=== PATIENT | female | born 1945 | race African-American/Black ===

== ENCOUNTER 2018-12-18 21:05 | Inpatient (IN) | payer MEDICARE, OTHER ==
[~2018-12-18] VITALS: Ht 170.2 cm; Wt 73.9 kg
--- NOTE | 2018-12-18 21:50 | NUR ---
Receive a phone report from Taya Soni RN from [facility] for pt's transferring s/p fall from horse-ride and diagnosis of right hip fracture. Will continue to follow up for pt's admission.
[2018-12-19] VITALS (8 sets, daily range): BP systolic 128–163; BP diastolic 67–84
--- NOTE | 2018-12-19 00:10 | NUR ---
NURSE NOTES: Patient admitted from [facility] via gurney with [address] [facility]. Pt is awake and alert, orientation X 4. Breathing is even and non labored. No acute distress noted. Denies pain on right hip during rest. No discoloration or bruise noted. No skin issues noted. Came with H/L on left FA patent without infiltration. Done checking belongings. Provide unit orientations. Bed is locked and lowest. Call light within reach. Pt is wearing regular clothing and refuses to change at this time. Make herself comfortable. Will continue to monitor. @0050 Done ordered labs and receive orders from Dr. Hernandez and carried out.
[2018-12-19 01:13] LABS: BASOPHILS % (AUTO) 0.6 % (0.0-2.0); EOSINOPHILS % (AUTO) 0.4 % (0.0-3.0); HEMATOCRIT 36.2 % (37.0-47.0); HEMOGLOBIN 12.5 G/DL (12.0-16.0); LYMPHOCYTES % (AUTO) 37.6 % (20.0-45.0); MEAN CORPUSCULAR VOLUME 95 FL (80-99); MONOCYTES % (AUTO) 9.4 % (1.0-10.0); PLATELET COUNT 114 K/UL (150-450); RED CELL DISTRIBUTION WIDTH 11.9 % (11.6-14.8); WHITE BLOOD COUNT 7.9 K/UL (4.8-10.8)
[2018-12-19 01:32] LABS: ALANINE AMINOTRANSFERASE 18 U/L (12-78); ALBUMIN 3.6 G/DL (3.4-5.0); ALBUMIN/GLOBULIN RATIO 0.9 (1.0-2.7); ALKALINE PHOSPHATASE 53 U/L (46-116); ANION GAP 9 mmol/L (5-15); ASPARTATE AMINO TRANSFERASE 22 U/L (15-37); BILIRUBIN,TOTAL 1.3 MG/DL (0.2-1.0); BLOOD UREA NITROGEN 15 mg/dL (7-18); CALCIUM 8.6 MG/DL (8.5-10.1); CARBON DIOXIDE 26 MMOL/L (21-32); CHLORIDE 107 MMOL/L (98-107); POTASSIUM 3.5 MMOL/L (3.5-5.1); SODIUM 142 MMOL/L (136-145)
[2018-12-19 01:39] LABS: BILIRUBIN,DIRECT 0.3 MG/DL (0.0-0.3)
[2018-12-19] MEDS: Morphine Sulfate 2mg/ml Inj(IV/IM USE ONLY) IVP PRN ×2 (03:21→19:55)
--- NOTE | 2018-12-19 07:30 | NUR ---
HAND-OFF: Report given to MARTY Perez. Round is done. Pt is in bed without acute distress. Seen by Dr. Hernandez. Confirm to use of Heparin as ordered including SCDs on. Dr. carreno verofy her home medication. Will continue to follow up. Am shift nurse made aware.
--- NOTE | 2018-12-19 08:06 | NUR ---
NURSE NOTES Patient is alert and oriented,right leg pedal pulse strong patient able to wiggle toes,no numbness.DR Hernandez was here this morning to asses patient .Call light within reach. ,
--- NOTE | 2018-12-19 08:30 | History and Physical Report ---
DATE OF ADMISSION: 12/19/2018 CHIEF COMPLAINT: Right inferior and superior pubic ramus fracture. HISTORY OF PRESENT ILLNESS: The patient is a pleasant female. She has a history of hypertensive heart disease and sustained a fall while riding a horse. She apparently jumped off of a horse because she was scared. She landed on her right side and had severe pain. She was taken to [facility] where she was diagnosed with a superior and inferior pubic ramus fracture. She requested to transfer here with her regular doctors. She did not hit her head and there was no other trauma. There is no loss of consciousness. PAST MEDICAL HISTORY: As above. PAST SURGICAL HISTORY: None. CURRENT MEDICATIONS: Reconciled and reviewed. ALLERGIES: None. FAMILY HISTORY: None. SOCIAL HISTORY: The patient is a smoker. No alcohol. No drugs. REVIEW OF SYSTEMS: GENERAL: No fevers or chills. HEENT: No headaches or visual changes. CARDIOPULMONARY: No chest pain or shortness of breath. GASTROINTESTINAL: No nausea or vomiting. GENITOURINARY: No urgency or frequency. MUSCULOSKELETAL: No joint pain or swelling. NEUROLOGIC: No evidence of seizures. PHYSICAL EXAMINATION: VITAL SIGNS: Temperature 98, blood pressure 140/76, pulse 70, respirations 20. GENERAL: The patient well-developed, no apparent distress. HEART: Regular rate and rhythm. LUNGS: Clear. ABDOMEN: Soft, nontender, nondistended. EXTREMITIES: Without clubbing, cyanosis, or edema. LABORATORY DATA: Labs are reviewed. Potassium was 3.5. ASSESSMENT: This is a pleasant female with a history of hypertensive heart disease, status post fall from a horse where she apparently sustained a right inferior and superior pubic ramus fracture. PLAN: Orthopedics consultation. We will resume the patient's outpatient blood pressure regimen. The patient received DVT and stress ulcer prophylaxis. Johny Hernandez M.D. DR: ARACELIS JOB#: [id number] CC:
[2018-12-19] MEDS: Heparin 5000 units/ml inj SUBQ SCH ×2 (09:23→20:11)
--- NOTE | 2018-12-19 10:15 | Diagnostic Imaging Report ---
EXAM: XR Chest, 1 View CLINICAL HISTORY: COPD TECHNIQUE: Frontal view of the chest. COMPARISON: No relevant prior studies available. FINDINGS: Lungs: Accentuation of bronchovascular markings. No consolidation. Pleural space: Unremarkable. No pneumothorax. Heart: Cardiomegaly Mediastinum: Unremarkable. Bones joints: No acute fracture. IMPRESSION: Cardiomegaly and accentuation of bronchovascular markings.
--- NOTE | 2018-12-19 14:15 | NUR ---
NURSE NOTES: received patient A/A/O lying in bed, calm and comfortable. NO c/o pain/discomfort @ this time. call light is within reach. able to use BSC with assistance. siderails are up x3. bed alarm is activated and locked @ all times. will cont to monitor.
--- NOTE | 2018-12-19 14:33 | NUR ---
HAND-OFF: Report given to WILLIAM CRAFT.
--- NOTE | 2018-12-19 14:33 | NUR ---
NURSE NOTES: Patient resting no complaint of pain at this time.call light within reach.
--- NOTE | 2018-12-19 19:01 | NUR ---
HAND-OFF: Report given to
--- NOTE | 2018-12-19 19:30 | NUR ---
NURSE NOTES: Received report from LUANA Bolden and rounds made with outgoing nurse. Received pt in bed, AOx4, denies any pain at this time, no distress noted. IV L forearm patent and intact. Abduction pillow in-place. Instructed pt not to cross right leg due to right hip fx. Pt verbalized understanding. Bed in lowest position and locked, side rails up x 2, call light within reach. Will continue to monitor.
--- NOTE | 2018-12-19 19:55 | NUR ---
NURSE NOTES: Assisted pt to use bedpan, voided without difficulty, medicated for pain. Will continue to monitor.
[2018-12-20] VITALS (7 sets, daily range): BP systolic 146–169; BP diastolic 84–105
[2018-12-20] MEDS: Morphine Sulfate 2mg/ml Inj(IV/IM USE ONLY) IVP PRN ×2 (05:20→19:56)
--- NOTE | 2018-12-20 07:31 | NUR ---
HAND-OFF: Report given to MARTY Vizcaino. Pt in stable condition.
--- NOTE | 2018-12-20 07:45 | NUR ---
NURSE NOTES: received report from MARTY Chopra. patient in bed. alert. oriented. verbally responsive. no respiratory distress noted. no pain at this time. waiting ortho consult with DR. price for RT hip FX. IV on LFA 20g hep lock intact. bed in the lowest position and locked. call light within reach. will continue to provide plan of care.
[2018-12-20] MEDS: Heparin 5000 units/ml inj SUBQ SCH ×2 (08:35→20:04)
--- NOTE | 2018-12-20 09:03 | NUR ---
NURSE NOTES: patient BP 164/105. patient has history of HTN. patient does not remember what medications she takes at home. notified DR. Hernandez and received order of Norvasc 5mg po daily. order noted and carried out.
[2018-12-20] MEDS ORDERED: HydrALAZINE 25mg tab ORAL PRN (11:00)
[2018-12-20] MEDS ORDERED: Losartan 50mg tab ORAL SCH (11:00)
--- NOTE | 2018-12-20 16:20 | NUR ---
NURSE NOTES: Patient wanted RN to ask doctor if she can continue to take multi vitamin and Vit D 5000 IU which patient takes every day at home for supplement. notified Mary Jung and received order of Multivitamin tab PO daily, Vit D 5000 IU daily. order noted and carried out.
--- NOTE | 2018-12-20 17:30 | Progress Note ---
DATE: 12/20/2018 CARDIOLOGY PROGRESS NOTE SUBJECTIVE: The patient's pain is better controlled. No shortness of breath noted. OBJECTIVE: VITAL SIGNS: Reviewed. Blood pressure trend is up at times. Blood pressure 164/105 earlier, now 146/88; pulse 62; respirations 20; afebrile. LUNGS: Clear. CARDIAC: Regular. ABDOMEN: Soft. No edema. Distal pulses intact. IMPRESSION: 1. Mechanical fall. 2. Superior and inferior pubic ramus fractures. 3. Hypertension with labile blood pressure trend, likely due to pain. 4. Osteoporosis and vitamin D deficiency. 5. History of hepatitis C eradication. 6. History of sinus bradycardia, asymptomatic. PLAN: 1. Await orthopedic evaluation. 2. Advance antihypertensives. 3. Avoid beta-blockers. 4. Recheck lab studies and preop EKG. Oni Bear M.D. DR: JAMES JOB#: [id number] CC:
--- NOTE | 2018-12-20 17:45 | Consultation ---
DATE OF CONSULTATION: 12/19/2018 CARDIOLOGY CONSULTATION CONSULTING PHYSICIAN: Oni Bear M.D. REASON FOR CONSULTATION: Preoperative cardiovascular evaluation for possible orthopedic surgery. HISTORY OF PRESENT ILLNESS: This is a 73-year-old female. She lives at home independently. She was horseback riding yesterday and jumped off the horse due to fear. She apparently landed hard on her right side and noted severe pain. From the stable, she was taken to [facility] where she was diagnosed with a superior and inferior pubic ramus fracture. Dr. Hernandez and myself were contacted by the patient and she was transferred here for further care as there apparently was no orthopedic surgery capacity at that facility either. The patient did not have any loss of consciousness. The patient does have a known history of hypertension and sinus node disease with bradycardia. The latter was exacerbated following treatment for hepatitis C with Harvoni. The patient has never had any syncope or symptomatic bradycardia. She had an exercise echocardiogram at my office within the last month that was negative for exercise-induced ischemia and revealed adequate chronotropic competence. Her baseline echocardiogram revealed normal ejection fraction with mild concentric hypertrophy and no wall motion abnormalities. PAST MEDICAL HISTORY: Hypertension; osteoarthritis; osteoporosis; history of hepatitis C, status post Harvoni eradication; vitamin D deficiency. ALLERGIES: None known. FAMILY HISTORY: Noncontributory. SOCIAL HISTORY: Active smoker and prior history of exposure to secondhand smoke as well, at least a 50 pack-year smoking history. No alcohol abuse. No substance abuse. She is a for the past three or four years. REVIEW OF SYSTEMS: No history of exertional chest pain. She had a negative myocardial perfusion scan several years ago. There is no history of rheumatic heart disease or endocarditis. There is no history of thyroid disorder or diabetes. No history of seizure or stroke. As noted above, she is status post hepatitis C eradication. There is no history of chronic liver disease. She has vitamin D deficiency and osteoporosis. PHYSICAL EXAMINATION: GENERAL: Appears well for her age. No distress. VITAL SIGNS: Blood pressure 147/84, pulse 63, respirations 17, temperature 99.1. HEENT: Normocephalic, atraumatic. Conjunctivae pink. Oropharynx clear. NECK: Supple. Jugular venous pressure normal. Carotid upstrokes without delay. LUNGS: Clear. CARDIAC: Regular rhythm and rate. Normal S1, S2 with no murmur, rub, or gallop. ABDOMEN: Soft, nontender. EXTREMITIES: Good pulses. No edema. NEUROLOGIC: Distal pulses are 2+. LABORATORY DATA: ER labs from [facility] were reviewed. IMPRESSION: 1. Mechanical fall. 2. Few inferior and superior pubic ramus fractures. 3. History of hypertension. 4. History of asymptomatic sinus bradycardia. PLAN: 1. Hydration. 2. Replace electrolytes. 3. DVT prophylaxis. 4. Stepwise titration of antihypertensive regimen. 5. We will consider low-dose beta-melissa preoperatively, however, would not to use this class of drugs long-term in view of history of bradycardia. FINAL RECOMMENDATIONS: We will follow on surgical plan if needed by Orthopedics is outlined. Oni Bear M.D. DR: JAMES JOB#: [id number] CC:
--- NOTE | 2018-12-20 19:17 | NUR ---
HAND-OFF: Report given to MARTY Chopra.
--- NOTE | 2018-12-20 19:30 | NUR ---
NURSE NOTES: Received report from MARTY Kaur. Receive pt in bed, AOx4, pain level 7/10, will medicate for pain, no distress noted. Bed in lowest position and locked, side rails up x 2, call light within reach. Will continue to monitor.
[2018-12-21] VITALS: BP 135/80
[2018-12-21 05:45] VITALS: BP 139/71
[2018-12-21 07:02] LABS: BASOPHILS % (AUTO) 0.5 % (0.0-2.0); EOSINOPHILS % (AUTO) 2.3 % (0.0-3.0); HEMATOCRIT 34.5 % (37.0-47.0); HEMOGLOBIN 11.6 G/DL (12.0-16.0); LYMPHOCYTES % (AUTO) 38.1 % (20.0-45.0); MEAN CORPUSCULAR VOLUME 96 FL (80-99); MONOCYTES % (AUTO) 17.4 % (1.0-10.0); NEUTROPHILS % (AUTO) 41.7 % (45.0-75.0); PLATELET COUNT 106 K/UL (150-450); RED BLOOD COUNT 3.61 M/UL (4.20-5.40); RED CELL DISTRIBUTION WIDTH 11.6 % (11.6-14.8); WHITE BLOOD COUNT 6.9 K/UL (4.8-10.8)
--- NOTE | 2018-12-21 07:27 | NUR ---
HAND-OFF: Report given to MARTY Hickman. Pt in stable condition.
--- NOTE | 2018-12-21 07:30 | NUR ---
NURSE NOTES: Pt lying in bed w/bed in lowest position and call light within reach. Pt A&Ox4, VSS, and in no apparent distress at this time. IV site intact/asymptomatic & H/L'd and skin intact. Reminded pt to call for assistance when she has to void; pt verbalized understanding. Will continue to monitor.
[2018-12-21 07:45] LABS: ALANINE AMINOTRANSFERASE 18 U/L (12-78); ALBUMIN 3.4 G/DL (3.4-5.0); ALBUMIN/GLOBULIN RATIO 0.9 (1.0-2.7); ALKALINE PHOSPHATASE 46 U/L (46-116); ANION GAP 10 mmol/L (5-15); ASPARTATE AMINO TRANSFERASE 25 U/L (15-37); BILIRUBIN,TOTAL 1.1 MG/DL (0.2-1.0); BLOOD UREA NITROGEN 9 mg/dL (7-18); CARBON DIOXIDE 25 MMOL/L (21-32); CHLORIDE 107 MMOL/L (98-107); CREATININE 0.8 MG/DL (0.55-1.30); POTASSIUM 3.3 MMOL/L (3.5-5.1); SODIUM 142 MMOL/L (136-145)
[2018-12-21 07:47] LABS: BILIRUBIN,DIRECT 0.2 MG/DL (0.0-0.3)
[2018-12-21 07:50] LABS: CALCIUM 8.7 MG/DL (8.5-10.1)
[2018-12-21 08:00] VITALS: BP 149/83
[2018-12-21] MEDS: Vitamin D 1000 IU Tab ORAL SCH (08:44)
[2018-12-21] MEDS: Heparin 5000 units/ml inj SUBQ SCH ×2 (08:46→20:03)
[2018-12-21] MEDS: Losartan 50mg tab ORAL SCH (08:48)
--- NOTE | 2018-12-21 09:13 | General Progress Note ---
Assessment/Plan Problem List: (1) Fracture of right hip ICD Codes: S72.001A - Fracture of unspecified part of neck of right femur, initial encounter for closed fracture SNOMED: 760608121 (2) Fever ICD Codes: R50.9 - Fever, unspecified SNOMED: 473980858 Status: stable, progressing Assessment/Plan: check UA D/w - he will see pt today. will order mri right hip Subjective ROS Limited/Unobtainable: No Constitutional: Reports: no symptoms HEENT: Reports: no symptoms Cardiovascular: Reports: no symptoms Respiratory: Reports: no symptoms Gastrointestinal/Abdominal: Reports: no symptoms Genitourinary: Reports: no symptoms Neurologic/Psychiatric: Reports: no symptoms Endocrine: Reports: no symptoms Hematologic/Lymphatic: Reports: no symptoms Allergies: Coded Allergies: NO KNOWN DRUG ALLERGIES (Verified Allergy, Unknown, 12/18/18) All Systems: reviewed and negative except above Subjective no events. still waiting for ortho. pain controlled. low grade temp. Objective Last 24 Hour Vital Signs Date Time Temp Pulse Resp B/P (MAP) Pulse Ox O2 Delivery O2 Flow Rate FiO2 12/21/18 08:48 149/83 12/21/18 08:48 69 149/83 12/21/18 05:45 99.5 69 17 139/71 (93) 96 12/21/18 00:00 99.2 65 18 135/80 (98) 99 12/20/18 21:00 Room Air 12/20/18 20:00 100.0 70 18 156/90 (112) 98 12/20/18 15:00 98.7 62 20 146/88 (107) 98 12/20/18 12:00 98.7 62 20 169/86 (113) 98 12/20/18 11:09 164/105 12/20/18 09:18 61 164/105 Intake and Output 12/20/18 12/21/18 19:00 07:00 Intake Total 300 ml 100 ml Output Total 600 ml Balance 300 ml -500 ml Intake Oral 300 ml 100 ml Output Urine Total 600 ml # Voids 3 # Bowel Movements 1 Laboratory Tests 12/21/18 04:45: White Blood Count 6.9, Red Blood Count 3.61L, Hemoglobin 11.6L, Hematocrit 34.5L , Mean Corpuscular Volume 96, Mean Corpuscular Hemoglobin 32.0H, Mean Corpuscular Hemoglobin Concent 33.5, Red Cell Distribution Width 11.6, Platelet Count 106L, Mean Platelet Volume 7.2, Neutrophils (%) (Auto) 41.7L, Lymphocytes (%) (Auto) 38.1, Monocytes (%) (Auto) 17.4H, Eosinophils (%) (Auto) 2.3, Basophils (%) (Auto) 0.5, Sodium Level 142, Potassium Level 3.3L, Chloride Level 107, Carbon Dioxide Level 25, Anion Gap 10, Blood Urea Nitrogen 9, Creatinine 0.8, Estimat Glomerular Filtration Rate , Glucose Level 115H, Calcium Level 8.7, Magnesium Level 1.7L, Total Bilirubin 1.1H, Direct Bilirubin 0.2, Aspartate Amino Transf (AST/SGOT) 25, Alanine Aminotransferase (ALT/SGPT) 18, Alkaline Phosphatase 46, Total Protein 7.4, Albumin 3.4, Globulin 4.0, Albumin/Globulin Ratio 0.9L, Thyroid Stimulating Hormone (TSH) 1.291 Height (Feet): 5 Height (Inches): 7.00 Weight (Pounds): 164 General Appearance: WD/WN Neck: supple Cardiovascular: regular rhythm Respiratory/Chest: chest wall non-tender, lungs clear, normal breath sounds, no respiratory distress Abdomen: normal bowel sounds, non tender, soft, no organomegaly Edema: no edema noted Arm (L), no edema noted Arm (R), no edema noted Leg (L), no edema noted Leg (R), no edema noted Pedal (L), no edema noted Pedal (R), no edema noted Generalized Johny Hernandez MD Dec 21, 2018 09:13
[2018-12-21 12:00] VITALS: BP 152/84
[2018-12-21 12:22] LABS: APPEARANCE,URINE CLEAR; BILIRUBIN, URINE NEGATIVE (NEGATIVE); GLUCOSE, URINE (UA) NEGATIVE (NEGATIVE); KETONES,URINE NEGATIVE (NEGATIVE); LEUKOCYTE ESTERASE ,URINE 2+ (NEGATIVE); NITRITE,URINE NEGATIVE (NEGATIVE); PH,URINE 7 (4.5-8.0); PROTEIN,URINE NEGATIVE (NEGATIVE); UROBILINOGEN,URINE 1 MG/DL (0.0-1.0)
[2018-12-21 12:25] LABS: COLOR,URINE YELLOW
[2018-12-21 16:00] VITALS: BP 155/100
--- NOTE | 2018-12-21 16:26 | NUR ---
CASE MANAGEMENT:REVIEW 73 YR OLD MALE BIBA FROM [facility] ER CC; JUMPED OFF HORSE SI: RT HIP FRACTURE. FEVER 99.2 58 17 128/72 99% ON RA PLT-114 IS: K-DUR PO X1 IV MAG SULFATE Q1HRS X2 BAGS COZAAR PO QD NORVASC PO QD HEPARIN SQ Q12 IV MORPHINE Q4HRS PRN : TO MED/SURG 3 EAST PLAN: ORTHOPEDIC CONSULT PENDING ~ DR ESTRADA MRI RT HIP
--- NOTE | 2018-12-21 17:02 | Diagnostic Imaging Report ---
Indication: Right Hip and pelvis pain Technique: MRI examination of the pelvis and right hip was performed in a 1.5 Ema magnet. Sequences obtained include multiplanar T1 and T2 fast spin echo, and STIR. Comparison: none Findings: There is a nondisplaced fracture involving the right hemisacrum best seen on coronal sequences as a curvilinear focus of T1 hypointensity/T2 hyperintensity. There is some associated soft tissue swelling. There is a fracture nondisplaced involving the right superior and inferior pubic rami. There is a moderate degree of the adjacent T2 hyperintense soft tissue edema mainly within the right adductor muscle group. The right femoral neck and remainder of the proximal femur demonstrate normal signal. There is no joint effusion. Bladder is mildly distended. There is some degradation of image quality due to motion. IMPRESSION: Acute nondisplaced fractures involving the right hemisacrum and right pubis. No evidence of a fracture involving the right hip. Findings discussed with Dr. Tank Martinez via telephone at 4:55 PM, 12/21/2018
[2018-12-21] MEDS: Morphine Sulfate 2mg/ml Inj(IV/IM USE ONLY) IVP PRN (17:40)
--- NOTE | 2018-12-21 19:48 | NUR ---
HAND-OFF: Report given to Nav Schneider RN.
--- NOTE | 2018-12-21 19:50 | Cardiology Report ---
APPROVED REPORT EKG Measurement Heart [id number] Normal sinus rhythm Normal ECG
[2018-12-21 20:00] VITALS: BP 147/86
--- NOTE | 2018-12-21 20:00 | NUR ---
NURSE NOTES: Patient in bed awake and oriented. VSS. No SOB noted. No Pain. Call light within reach. Bed is locked and in low position. In stable condition.
--- NOTE | 2018-12-21 22:00 | Progress Note ---
DATE: 12/21/2018 SUBJECTIVE: No issues overnight. She is still having some pain in the right hip, but overall does not have significant discomfort and pain. She does have some pain on the anterior aspect of the right hip. OBJECTIVE: GENERAL: The patient is resting comfortably on the exam bed. VITAL SIGNS: Afebrile. Stable vital signs. The rest of the examination is negative overall and negative heel strength. At this time, the patient has pain along SI joint area. IMAGING: CT scan of the pelvis was reviewed. It show minimally displaced superior and inferior pubic repair with sacral impaction fracture. ASSESSMENT: Pelvic ring fracture (lateral compression grade 1 pelvic ring fracture). DISCUSSION: At this point, due to stable injury, it is nonoperative and should heal in 6 to 12 weeks. She can be weightbearing as tolerated. Begin physical therapy with weightbearing as tolerated with the use of a walker. She can follow up as outpatient as needed. Solomon Martinez M.D. DR: ALEXANDRIA JOB#: [id number] CC: JENNIFER
--- NOTE | 2018-12-21 22:30 | Progress Note ---
DATE: 12/21/2018 CARDIOLOGY PROGRESS NOTE SUBJECTIVE: The patient had additional orthopedic imaging performed. Ortho evaluation had just nonsurgical management. OBJECTIVE: VITAL SIGNS: Blood pressure 149/83, pulse 69, respirations 17, temperature max 100. LUNGS: Diminished breath sounds. HEART: Regular rhythm and rate. Normal S1, S2. ABDOMEN: Soft. EXTREMITIES: No edema. LABORATORY DATA: White count 6.9, hemoglobin 11.6, potassium 3.3, magnesium 1.7. Urinalysis with 2 to 4 white cells only. IMPRESSION: 1. Pelvic fracture. 2. Hypokalemia. 3. Hypomagnesemia. 4. History of hepatitis C, status post eradication therapy. 5. Sinus node disease with history of asymptomatic bradycardia. PLAN: 1. Physical and occupational therapy. 2. Orthostatic precautions. 3. Oral potassium replacement. 4. IV magnesium replacement. 5. Titrate antihypertensives. Oni Bear M.D. DR: JAMES JOB#: [id number] CC:
[2018-12-22] VITALS: BP 151/90
--- NOTE | 2018-12-22 03:45 | Progress Note ---
DATE: 12/21/2018 SUBJECTIVE: The patient is a pleasant 73-year-old female was riding a horse when the horse kind of got out of control. She subsequently scared that she was going to be thrown off and was subsequently jumped off the horse, subsequently landing on her right side. She had significant pain and discomfort, was seen in the [facility], diagnosed with possible fracture, subsequently referred here for further care and recommendation. Orthopedic consultation was obtained for further care and recommendation. The patient does have some pain along the lateral aspect of the right hip as well as along the thigh area. She does have some pain along the pubic rami and posterior SI joint area. Sensation intact to light touch. Reflexes +2. Imaging studies show a possible fracture of the right superior pubic rami fracture. DISCUSSION: At this point, I think it is just primarily a pelvic ring fracture. I would like to get a CT scan of the pelvis to confirm this. CT scan does confirm pubic rami fracture with sacral impaction. She should be weightbearing as tolerated. It will take 6 to 12 weeks to heal. She can take Tylenol and NSAIDs as needed for breakthrough pain. We will order CT scan and make further recommendations tomorrow once I review the CT scan. Solomon Martinez M.D. DR: Pan JOB#: [id number] CC:
[2018-12-22 04:00] VITALS: BP 148/88
--- NOTE | 2018-12-22 05:05 | General Progress Note ---
Assessment/Plan Problem List: (1) Fracture of right hip ICD Codes: S72.001A - Fracture of unspecified part of neck of right femur, initial encounter for closed fracture SNOMED: 027264736 (2) Fever ICD Codes: R50.9 - Fever, unspecified SNOMED: 898720843 Status: stable, progressing Assessment/Plan: pain control pt/ot eval dc planning Subjective ROS Limited/Unobtainable: No Constitutional: Reports: malaise, weakness HEENT: Reports: no symptoms Cardiovascular: Reports: no symptoms Respiratory: Reports: no symptoms Gastrointestinal/Abdominal: Reports: no symptoms Genitourinary: Reports: no symptoms Neurologic/Psychiatric: Reports: no symptoms Endocrine: Reports: no symptoms Hematologic/Lymphatic: Reports: no symptoms Allergies: Coded Allergies: NO KNOWN DRUG ALLERGIES (Verified Allergy, Unknown, 12/18/18) All Systems: reviewed and negative except above Subjective ortho and cards appreciated. +pain with any movement or wt bearing. no fevers. UA negative. MRI confirms pelvic fracture.. no hip fracture. Objective Last 24 Hour Vital Signs Date Time Temp Pulse Resp B/P (MAP) Pulse Ox O2 Delivery O2 Flow Rate FiO2 12/22/18 04:00 98.4 71 18 148/88 (108) 97 12/22/18 00:00 98.0 72 18 151/90 (110) 96 12/21/18 21:00 Room Air 12/21/18 20:00 98.2 70 18 147/86 (106) 95 12/21/18 16:00 97.1 71 18 155/100 (118) 95 12/21/18 12:00 98.1 64 18 152/84 (106) 97 12/21/18 09:00 Room Air 12/21/18 08:48 149/83 12/21/18 08:48 69 149/83 12/21/18 08:00 97.2 69 18 149/83 (105) 97 12/21/18 05:45 99.5 69 17 139/71 (93) 96 Intake and Output 12/21/18 12/22/18 19:00 07:00 Intake Total 1160 ml Balance 1160 ml Intake Oral 960 ml IV Total 200 ml # Voids 1 Laboratory Tests 12/21/18 10:00: Urine Color Yellow, Urine Appearance Clear, Urine pH 7, Urine Specific [place] 1.005, Urine Protein Negative, Urine Glucose (UA) Negative, Urine Ketones Negative, Urine Blood Negative, Urine Nitrite Negative, Urine Bilirubin Negative , Urine Urobilinogen 1H, Urine Leukocyte Esterase 2+H, Urine RBC 0, Urine WBC 2- 4, Urine Squamous Epithelial Cells Few, Urine Bacteria Occasional Height (Feet): 5 Height (Inches): 7.00 Weight (Pounds): 164 General Appearance: WD/WN EENT: normal ENT inspection Neck: supple Cardiovascular: normal rate, regular rhythm Respiratory/Chest: chest wall non-tender, lungs clear, normal breath sounds Abdomen: normal bowel sounds, non tender, soft, no organomegaly Edema: no edema noted Arm (L), no edema noted Arm (R), no edema noted Leg (L), no edema noted Leg (R), no edema noted Pedal (L), no edema noted Pedal (R), no edema noted Generalized Neurologic: shaker operator II-XII grossly normal, alert, oriented x 3 Johny Hernandez MD Dec 22, 2018 05:05
--- NOTE | 2018-12-22 07:52 | NUR ---
NURSE NOTES: AWAKE/ALERT. PAIN SCALE 8/10. IN NO ACUTE DISTRESS.
[2018-12-22 08:00] VITALS: BP 135/71
--- NOTE | 2018-12-22 08:45 | NUR ---
PT EVALUATION NOTE Patient seen for initial evaluation, see complete evaluation for details. Patient presents with painful R hip and decreased strength R hip s/p fall and pubic rami fracture. Patient requires SBA for bed mobility and transfers with FWW, uses her RUE to lower and lift her RLE in/OOB. Patient able to ambulate 125 ft with SBA and FWW, slow pace, antalgic gait. Patient able to ascend/descend 10 stairs with SBA, slow pace, using bilateral rails. Patient lives in a second floor apartment without elevator access. Patient will benefit from skilled inpatient PT intervention to increase RLE strength, balance and safety awareness to improve level of functional mobility. Recommend discharge home with home PT vs short term SNF for rehab once medically cleared by MD. Patient will need FWW for home use. Addendum: 12/22/18 at 1043 by RONIT ROBERSON PT Amended: Links added.
[2018-12-22] MEDS: Heparin 5000 units/ml inj SUBQ SCH ×2 (09:00→20:28)
[2018-12-22] MEDS: Losartan 50mg tab ORAL SCH (09:05)
[2018-12-22] MEDS: Vitamin D 1000 IU Tab ORAL SCH (09:06)
--- NOTE | 2018-12-22 10:31 | CDS Physician Query ---
Clarification is required for compliance, coding accuracy, and to reflect severity of illness for this patient Dear Dr. Oni Bear Date: 12/22/2018 Chiropractic Teacher/CDS Name: Rani Rosa Clinical Documentation States: 12/20 progress note: 73 female with...1. Mechanical fall. 2. Superior and inferior pubic ramus fractures...4. Osteoporosis and vitamin D deficiency. Please respond to the following question: Is there a diagnosis specific to these symptoms or values? If so please state below. PHYSICIAN RESPONSE: [] Osteoporosis with pathological fracture of pelvis [x] Traumatic fracture of pelvis [] Other [] Clinically Undetermined Present on Admission: [x] Yes [] No [] Clinically Undetermined Physician signature Date Please also document in your Progress Notes and/or Discharge Summary and indicate if the condition was present on admission. JENNIFER
[2018-12-22 12:00] VITALS: BP 128/73
[2018-12-22 16:00] VITALS: BP 122/78
--- NOTE | 2018-12-22 18:56 | NUR ---
NURSE NOTES: pt resting. no acute discomfort.stable.
--- NOTE | 2018-12-22 19:23 | NUR ---
HAND-OFF: Report given to Mary PENN RN.
[2018-12-22] MEDS: Morphine Sulfate 2mg/ml Inj(IV/IM USE ONLY) IVP PRN (20:27)
[2018-12-22 21:00] VITALS: BP 107/69
--- NOTE | 2018-12-22 22:00 | NUR ---
NURSES NOTE: Met patient in bed, A/O X4, able to let needs be known. VS WNL, non-labored and even breathing pattern, no outward s/s of distress noted. All due meds given. Patient requested Morphine 1mg for pain. Medication effective as patient appears to be sleeping comfortably at reassessment. Bed at lowest level, call light within reach. Patient will continue to be monitored.
--- NOTE | 2018-12-23 01:00 | Progress Note ---
DATE: 12/22/2018 SUBJECTIVE: The patient has slightly less pain. Mobility is slightly improved. PHYSICAL EXAMINATION: VITAL SIGNS: Blood pressure 148/88, pulse 71, respirations 18. LUNGS: Clear. CARDIAC: Regular. ABDOMEN: Soft. No edema. IMPRESSION: 1. Rising blood pressure trend. 2. Continued pain due to fall and fracture. 3. Status post pelvic fracture x2, mechanical fall. PLAN: 1. Titrate antihypertensive regimen. 2. Monitor volume status and cardiorenal parameters. 3. Mobilize. 4. DVT prophylaxis. Oni Bear M.D. DR: CARO JOB#: [id number] CC:
[2018-12-23 04:00] VITALS: BP 111/65
--- NOTE | 2018-12-23 07:24 | NUR ---
NURSE NOTES: AWAKE/ALERT. PAIN SCALE 8/10. IN NO DISTRESS.
--- NOTE | 2018-12-23 07:30 | NUR ---
NURSES NOTE Report given to MARTY cordova
[2018-12-23] MEDS ORDERED: PERCOCET 10-321 EAC1 ORAL (07:39)
[2018-12-23 08:00] VITALS: BP 131/71
[2018-12-23] MEDS: Vitamin D 1000 IU Tab ORAL SCH (08:42)
[2018-12-23] MEDS: Losartan 50mg tab ORAL SCH (08:44)
[2018-12-23] MEDS: Heparin 5000 units/ml inj SUBQ SCH (08:49)
--- NOTE | 2018-12-23 09:10 | NUR ---
DISCHARGE PLANNING PATIENT HAS DISCHARGE ORDER FOR HOME CHEMISTRY ACCOUNT MANAGER HAS REFERRED PATIENT TO [facility] T: [phone] F: [phone]
[2018-12-23 12:00] VITALS: BP 111/74
[2018-12-23] MEDS ORDERED: Tubing IV Secondary IV ONE (15:54)
[2018-12-23] MEDS ORDERED: NS 275ml ONE (15:54)
--- NOTE | 2018-12-23 16:00 | NUR ---
NURSE NOTES: DISCHARGED HOME PER WHEELCHAIR [facility] BY DAUGHTER IN STABLE CONDITION. DC INSTRUCTIONS AND RX GIVEN
--- NOTE | 2018-12-23 23:45 | Progress Note ---
DATE: 12/23/2018 CARDIOLOGY PROGRESS NOTE SUBJECTIVE: The patient is ambulatory with assist device. No shortness of breath. No nausea or vomiting. No chest pain. OBJECTIVE: VITAL SIGNS: Blood pressure 131/71, pulse 74, respirations 20, and afebrile. LUNGS: Clear. CARDIAC: Regular. Normal S1, S2 with no murmur. ABDOMEN: Soft. EXTREMITIES: No edema. IMPRESSION: 1. Mechanical fall. 2. Pelvic fracture. 3. Hypertensive heart disease. 4. History of hepatitis C status post eradication. 5. History of sinus node disease with asymptomatic bradycardia. PLAN: 1. Stable for outpatient followup. 2. No additional cardiovascular therapy indicated. 3. May maintain current regimen. Oni Bear M.D. DR: SANAZ JOB#: [id number] CC:
--- NOTE | 2018-12-24 02:00 | Discharge Summary ---
DATE OF ADMISSION: 12/19/2018 DATE OF DISCHARGE: 12/23/2018 ADMISSION DIAGNOSES: 1. Pelvic fracture. 2. History of hypertension. 3. Seizures. DISCHARGE DIAGNOSES: 1. Pelvic fracture. 2. History of hypertension. 3. Seizures. HOSPITAL COURSE: The patient is a pleasant female. She sustained a fall off of a horse. She had severe pain. She was seen at an outside hospital where she was diagnosed with a pelvic fracture. She was transferred here for care with her regular doctors. She had an MRI that also showed a pelvic fracture. She was seen by Orthopedics as well as Cardiology. She did not require any surgical intervention. She will be discharged home with home health for therapy as well as oral pain medications for pain. DISCHARGE MEDICATIONS: Please see discharge medication list for discharge medications. DIET: Cardiac diet. ACTIVITIES: Ad-leoncio. FOLLOWUP: The patient will follow up in the office in 2 weeks. Johny Hernandez M.D. DR: SWATHI JOB#: [id number] CC:
== END 2018-12-23 15:55 | disposition home or self-care (01) | DRG 536 ==
LOC: 3E 12-19 00:37
DX: S32.810A Multiple fractures of pelvis with stable disruption of pelvic ring, initial encounter for closed fracture (principal); V80.010A Animal-rider injured by fall from or being thrown from horse in noncollision accident, initial encounter; Y93.52 Activity, horseback riding; M81.0 Age-related osteoporosis without current pathological fracture; F17.200 Nicotine dependence, unspecified, uncomplicated; I10 Essential (primary) hypertension; I49.5 Sick sinus syndrome; R00.1 Bradycardia, unspecified; M19.90 Unspecified osteoarthritis, unspecified site; Z86.19 Personal history of other infectious and parasitic diseases; E55.9 Vitamin D deficiency, unspecified; E87.6 Hypokalemia; E83.42 Hypomagnesemia
CPT/HCPCS: 36415; 71045; 80053; 81003; 82248; 83735; 84443; 85025; 85610; 85730; 87086; 93005; J8499